=== PATIENT | male | born 1980 | race Caucasian/White ===

== ENCOUNTER → 2016-08-08 | Outpatient (CLI) | payer OTHER ==
--- NOTE | 2016-08-08 15:02 | FL ---
Wrist arthrogram HISTORY: Pain Maximal barrier technique was utilized. The skin overlying a suitable path to the scapholunate joint was localized with fluoroscopy and the overlying skin prepped and draped. Lidocaine used for local an esthesia. I was asked to evaluate for puncture following initial attempts. 21-gauge needle was advanced into the scapholunate joint under fluoroscopy. Serous fluid returned in the hub of the needle. Gentle hand injection was performed of approximately 3 to 4 cc of radiographic contrast mixed with gadolinium. Spot images were obtained. Needle removed. Hemostasis achieved. No i mmediate complication. FINDINGS: Contrast seen within the wrist joint. No evident triangle fibrocartilage tear. IMPRESSION: Status post fluoroscopic-guided arthrography. Post procedure MRI is pending.
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
== END | disposition home or self-care (01) ==
LOC: RADFLMAIN 12:48
PROVIDERS: ATTEND Plastic Surgery
DX: S63.501A Unspecified sprain of right wrist, initial encounter (principal)
CPT/HCPCS: 25246; 73115; 73222; Q9966; A9577

== ENCOUNTER → 2019-07-15 | Outpatient (CLI) | payer OTHER ==
--- NOTE | 2019-07-15 13:27 | XR ---
Left knee HISTORY: Pain 3 views of the left knee Bone mineralization, joint spaces and alignment are maintained. No evident joint effusion. IMPRESSION: No fracture or dislocation. Knee MRI may be of benefit.
== END | disposition home or self-care (01) ==
LOC: RADXRMAIN 11:16
PROVIDERS: ATTEND Family Medicine
DX: M25.562 Pain in left knee (principal)

== ENCOUNTER → 2020-05-02 | Outpatient (CLI) | payer OTHER ==
[2020-05-02 10:01] LABS: Basophils # (A) 0.1 k/uL (0-0.2); Basophils % (A) 1 %; Eosinophils # (A) 0.4 k/uL (0-0.7); Eosinophils % (A) 7 %; HCT 49.8 % (39.0-53.0); HGB 16.6 gm/dL (13.0-17.5); Lymphocytes # (A) 1.2 k/uL (1.0-4.8); Lymphocytes % (A) 25 %; MCH 30.5 pg (25.0-35.0); MCHC 33.3 g/dL (31.0-37.0); MCV 91.6 fL (80.0-100.0); Mean Platelet Volume 6.8; Monocytes # (A) 0.3 k/uL (0-1.0); Monocytes % (A) 6 %; Neutrophils # (A) 2.9 k/uL (1.3-7.7); Neutrophils % (A) 59 %; Platelet Count 211 k/uL (150-450); RBC 5.44 m/uL (4.30-5.90); RDW 13.1 % (11.5-15.5)
[2020-05-02 15:41] LABS: African American GFR (CKD) 110.9 (60.0-200.0); Anion Gap 9.1 mmol/L (4.00-12.00); Calcium 9.4 mg/dL (8.7-10.3); Carbon Dioxide 27.9 mmol/L (21.6-31.8); Non-African American GFR(CKD) 95.7 (60.0-200.0); Potassium 4.2 mmol/L (3.5-5.5)
[2020-05-03 13:22] LABS: T4/T8 Ratio (CD4:CD8) 0.6 (1.0-3.7)
[2020-05-03 15:24] LABS: HIV-1 RNA DETECTED (Not detected); HIV-1 RNA, Quant <40 Copies/mL (<40)
== END | disposition home or self-care (01) ==
LOC: LABWHC1 09:17
PROVIDERS: ATTEND Internal Medicine Infectious Disease
DX: B20 Human immunodeficiency virus [HIV] disease (principal)
CPT/HCPCS: 36415; 80048; 85025; 86360; 87536

== ENCOUNTER 2020-06-15 21:28 | Emergency (ER) | payer OTHER ==
[2020-06-15] MEDS ORDERED: PANTOPRAZOLE 40 MG/10 ML VIAL IVP STA (21:37)
[2020-06-15] MEDS ORDERED: DICYCLOMINE 10 MG/ML 2 ML AMP IM STA (21:37)
[2020-06-15] MEDS ORDERED: SODIUM CHLORIDE 0.9% 1,000 ML IV STA (21:37)
[2020-06-15] MEDS ORDERED: ONDANSETRON 4 MG/2 ML VIAL IVP STA (21:37)
--- NOTE | 2020-06-15 21:38 | ED ---
Abdominal Pain HPI - General Chief Complaint: Abdominal Pain Stated Complaint: Abd Pain,NVD Time Seen by Provider: 06/15/20 21:36 Source: patient Mode of arrival: ambulatory Limitations: no limitations - History of Present Illness Initial Comments: 39-year-old male presents to emergency department with a complaint of abdominal pain nausea vomiting. Patient reports the symptoms began earlier today when he had some nausea and one episode of nonbilious and nonbloody vomiting. Patient also reports 1 day worth of diarrhea. Patient reports dysuria and increased urgency for the past several months, intermittent . He reports developing abdominal pain in the right groin earlier today. States this was sudden onset pain is sharp in nature. Denies any penile discharge, testicular swelling or erythema. Does report some suprapubic tenderness but denies any flank or back pain. Does have abdominal surgical history of appendectomy. Denies taking med ication to alleviate the symptoms. Denies chest pain shortness of breath. - Related Data Home Medications Medication Instructions Recorded Confirmed Albuterol Sulfate [Ventolin HFA] 2 puff INHALATION RT-TID PRN 06/15/20 06/15/20 Azelastine HCl 2 spray EA NOSTRIL BID PRN 06/15/20 06/15/20 Cetirizine HCl [Zyrtec] 10 mg PO DAILY PRN 06/15/20 06/15/20 Efavirenz/Emtricitab/Tenofovir 1 tab PO HS 06/15/20 06/15/20 [Atripla Tablet] Hydrocortisone Cream 1 applic TOPICAL BID PRN 06/15/20 06/15/20 [Hydrocortisone 2.5% Cream] Montelukast [Singulair] 10 mg PO HS 06/15/20 06/15/20 Previous Rx's Medication Instructions Recorded HYDROcodone/APAP 7.5-325MG [[place] 1 tab PO Q6HR PRN 3 Days #12 tab 06/15/20 7.5-325] Ondansetron Odt [Zofran Odt] 4 mg PO Q8HR PRN #10 tab 06/15/20 Tamsulosin [Flomax] 0.4 mg PO DAILY #7 cap 06/15/20 Allergies Allergy/AdvReac Type Severity Reaction Status Date / Time No Known Allergies Allergy Verified 06/15/20 22:13 Review of Systems ROS Statement: Those systems with pertinent positive or pertinent negative responses have been documented in the HPI. ROS Other: All systems not noted in ROS Statement are negative. Past Medical History Additional Past Medical History / Comment(s): HIV+ ,PVC'S History of Any Multi-Drug Resistant Organisms: None Reported Past Surgical History: Ablation, Appendectomy, Orthopedic Surgery Additional Past Surgical History / Comment(s): rt wrist Past Psychological History: Anxiety, Depression Smoking Status: Never smoker Past Alcohol Use History: Occasional Past Drug Use History: None Reported General Exam Limitations: no limitations General appearance: alert, in no apparent distress Head exam: Present: atraumatic, normocephalic, normal inspection Eye exam: Present: normal appearance, PERRL, EOMI Pupils: Present: normal accommodation ENT exam: Present: normal exam, normal oropharynx, mucous membranes moist, TM's normal bilaterally, normal external ear exam Neck exam: Present: normal inspection, full ROM. Absent: tenderness Respiratory exam: Present: normal lung sounds bilaterally. Absent: respiratory distress Cardiovascular Exam: Present: regular rate, normal rhythm, normal heart sounds GI/Abdominal exam: Present: soft, tenderness (Mild suprapubic tenderness). Absent: distended Extremities exam: Present: normal inspection, full ROM Back exam: Present: normal inspection, full ROM. Absent: tenderness, CVA tenderness (R), CVA tenderness (L) Neurological exam: Present: alert, oriented X3 Psychiatric exam: Present: normal affect, normal mood Skin exam: Present: warm, dry, intact, normal color Course Vital Signs 06/15/20 21:32 Temperature 97.9 F Pulse Rate 122 H Respiratory 20 Rate Blood Pressure 163/100 O2 Sat by Pulse 99 Oximetry Medical Decision Making - Medical Decision Making 39-year-old male presents to the emergency room with a chief complaint abdominal pain nausea vomiting. Physical examination, he has some tenderness over the right groin region. Mild right CVA tenderness. Patient was given IV fluids, analgesia, antiemetics. CBC CMP unremarkable. UA shows large amounts of blood and red blood cells. CT of abdomen and pelvis without contrast reveals an obstructing calculus in the right distal ureter with moderate right-sided hydronephrosis and hydroureter. Renal stone measures about 8 mm. UA not suggestive of septic stone. Patient will be discharged with [place] for analgesia. Narcotic form signed. We'll also be discharged with Flomax and Zofran. Advised follow-up with urology. Return parameters thoroughly discussed with patient was up standing agreeable. Case discussed with physician. - Lab Data Result diagrams: 06/15/20 21:53 06/15/20 21:53 Lab Results 06/15/20 06/15/20 06/15/20 Range/Units 21:53 21:53 21:53 WBC 5.5 (3.8-10.6) k/uL RBC 5.29 (4.30-5.90) m/uL Hgb 16.2 (13.0-17.5) gm/dL Hct 46.6 (39.0-53.0) % MCV 88.2 (80.0-100.0) fL MCH 30.7 (25.0-35.0) pg MCHC 34.8 (31.0-37.0) g/dL RDW 13.1 (11.5-15.5) % Plt Count 259 (150-450) k/uL MPV 6.8 Neutrophils % 59 % Lymphocytes % 25 % Monocytes % 5 % Eosinophils % 6 % Basophils % 2 % Neutrophils # 3.2 (1.3-7.7) k/uL Lymphocytes # 1.4 (1.0-4.8) k/uL Monocytes # 0.3 (0-1.0) k/uL Eosinophils # 0.3 (0-0.7) k/uL Basophils # 0.1 (0-0.2) k/uL Sodium 142 (137-145) mmol/L Potassium 4.1 (3.5-5.1) mmol/L Chloride 105 (98-107) mmol/L Carbon Dioxide 23 (22-30) mmol/L Anion Gap 14 mmol/L BUN 20 (9-20) mg/dL Creatinine 0.90 (0.66-1.25) mg/dL Est GFR (CKD-EPI)AfAm >90 (>60 ml/min/1.73 sqM) Est GFR (CKD-EPI)NonAf >90 (>60 ml/min/1.73 sqM) Glucose 95 (74-99) mg/dL Calcium 9.4 (8.4-10.2) mg/dL Total Bilirubin 0.3 (0.2-1.3) mg/dL AST 31 (17-59) U/L ALT 40 (4-49) U/L Alkaline Phosphatase 62 (38-126) U/L Total Protein 7.5 (6.3-8.2) g/dL Albumin 4.8 (3.5-5.0) g/dL Lipase 93 (23-300) U/L Urine Color Yellow Urine Appearance Clear (Clear) Urine pH 5.5 (5.0-8.0) Ur Specific [place] 1.020 (1.001-1.035) Urine Protein Trace H (Negative) Urine Glucose (UA) Negative (Negative) Urine Ketones Trace H (Negative) Urine Blood Large H (Negative) Urine Nitrite Negative (Negative) Urine Bilirubin Negative (Negative) Urine Urobilinogen <2.0 (<2.0) mg/dL Ur Leukocyte Esterase Negative (Negative) Urine RBC >182 H (0-5) /hpf Urine WBC 5 (0-5) /hpf Urine Mucus Rare H (None) /hpf Disposition Clinical Impression: Nephrolithiasis, Hydronephrosis Disposition: HOME SELF-CARE Condition: Stable Instructions (If sedation given, give patient instructions): Kidney Stones (ED) Additional Instructions: Take prescribed medication as directed. Drink plenty of fluids. Follow-up with urology.Please return to the Emergency Department if symptoms worsen or any other concerns. Prescriptions: Tamsulosin [Flomax] 0.4 mg PO DAILY #7 cap HYDROcodone/APAP 7.5-325MG [[place] 7.5-325] 1 tab PO Q6HR PRN 3 Days #12 tab PRN Reason: Pain Ondansetron Odt [Zofran Odt] 4 mg PO Q8HR PRN #10 tab PRN Reason: Nausea Is patient prescribed a controlled substance at d/c from ED?: Yes If prescribed controlled substance>3 days was MAPS reviewed?: Prescribed <3 Days Referrals: Rey Sharma MD [Primary Care Provider] - 1-2 days Time of Disposition: 23:19
[2020-06-15 22:03] LABS: Basophils # (A) 0.1 k/uL (0-0.2); Basophils % (A) 2 %; Eosinophils # (A) 0.3 k/uL (0-0.7); Eosinophils % (A) 6 %; HCT 46.6 % (39.0-53.0); HGB 16.2 gm/dL (13.0-17.5); Lymphocytes # (A) 1.4 k/uL (1.0-4.8); Lymphocytes % (A) 25 %; MCH 30.7 pg (25.0-35.0); MCHC 34.8 g/dL (31.0-37.0); MCV 88.2 fL (80.0-100.0); Mean Platelet Volume 6.8; Monocytes # (A) 0.3 k/uL (0-1.0); Monocytes % (A) 5 %; Neutrophils # (A) 3.2 k/uL (1.3-7.7); Neutrophils % (A) 59 %; Platelet Count 259 k/uL (150-450); RBC 5.29 m/uL (4.30-5.90); RDW 13.1 % (11.5-15.5); WBC 5.5 k/uL (3.8-10.6)
[2020-06-15 22:06] LABS: Appearance,Urine Clear (Clear); Bilirubin,Urine Negative (Negative); Blood,Urine Large (Negative); Color,Urine Yellow; Glucose,Urine (UA) Negative (Negative); Ketones,Urine Trace (Negative); Leukocyte Esterase,Urine Negative (Negative); Mucus,Urine Rare /hpf; Nitrite,Urine Negative (Negative); PH, Urine 5.5 (5.0-8.0); Protein,Urine Trace (Negative); RBC,Urine >182 /hpf (0-5); Urobilinogen,Urine <2.0 mg/dL (<2.0); WBC,Urine 5 /hpf (0-5)
[2020-06-15] MEDS ORDERED: KETOROLAC 15 MG/ML 1 ML VIAL IVP STA (22:11)
[2020-06-15 22:16] LABS: ALT 40 U/L (4-49); AST 31 U/L (17-59); African American GFR (CKD) >90 (>60 ml/min/1.73 sqM); Albumin 4.8 g/dL (3.5-5.0); Alkaline Phosphatase 62 U/L (38-126); Anion Gap 14 mmol/L; Blood Urea Nitrogen 20 mg/dL (9-20); Calcium 9.4 mg/dL (8.4-10.2); Carbon Dioxide 23 mmol/L (22-30); Chloride 105 mmol/L (98-107); Glucose 95 mg/dL (74-99); Lipase 93 U/L (23-300); Non-African American GFR(CKD) >90 (>60 ml/min/1.73 sqM); Potassium 4.1 mmol/L (3.5-5.1); Sodium 142 mmol/L (137-145); Total Bilirubin 0.3 mg/dL (0.2-1.3); Total Protein 7.5 g/dL (6.3-8.2)
--- NOTE | 2020-06-15 23:12 | CT ---
EXAMINATION TYPE: CT abdomen pelvis wo con DATE OF EXAM: 06/15/2020 COMPARISON: None HISTORY: abdomen pain, r/o renal stone CT DLP: 527.4 mGycm Automated exposure control for dose reduction was used. Images obtained from the diaphragm to the floor the pelvis with no contrast. The lung bases are clear. There is no pleural effusion. Heart size is normal. There is no pericardial effusion. Liver spleen pancreas gallbladder appear intact. Bile ducts are not dilated. There is no adrenal mass. Kidneys have normal size. There is right-sided hydronephrosis and hydrouret er. There is 8mm calculus in the distal right ureter. There are multiple bilateral renal calculi that measure up to 1 cm. There is no evidence of a renal mass. There is no evidence of obstruction on the left side. There is no retroperitoneal adenopathy. The bladder distends smoothly. There is no inguinal hernia. There is no free fluid in the pelvis. There is no mesenteric edema. There is no ascites or free air. There are surgical clips in the right lower quadrant probably from appendectomy. Appendix is not seen. Terminal ileum appears normal. The s tomach is intact. The lumbar vertebra have normal alignment. There is no compression fracture. Posterior elements are i ntact. The bony pelvis is intact. Hip joints appear normal. IMPRESSION: Obstructing calculus distal right ureter with moderate right-sided hydronephrosis and hydroureter. Multiple large bilateral renal calculi.
[2020-06-15] MEDS ORDERED: HYDROcodone/APAP 5-325MG 1 EACH TAB PO STA (23:16)
[2020-06-15] MEDS ORDERED: TAMSULOSIN 0.4 MG CAP.ER.24H PO STA (23:16)
[2020-06-15] MEDS ORDERED: ONDANSETRON 4 MG ODT STARTER PACK 2 TAB BTL PO STA (23:16)
[2020-06-15 23:39] VITALS: BP 123/86; PULSE 89; RESP 18; TEMP 98.1
== END 2020-06-15 23:39 | disposition home or self-care (01) ==
LOC: EC 21:28
DX: N13.2 Hydronephrosis with renal and ureteral calculous obstruction (principal); R19.7 Diarrhea, unspecified; Z90.49 Acquired absence of other specified parts of digestive tract
CPT/HCPCS: 99284; 96372; 96374; 96375 ×3; 96361; 36415; 80053; 83690; 85025; 81001; 74176; J0500; J2405; J1885; S0119; C9113

== ENCOUNTER 2020-06-27 08:25 | Day surgery (SDC) | payer OTHER ==
[2020-06-25 11:35] VITALS: BMI 25.8
--- NOTE | 2020-06-26 19:18 | P.GSHP ---
History of Present Illness H&P Date: 06/26/20 39 yo male who for the last month has been trying to pass a large right ureteral stone. It is 8 mm in the distal ureter right. He comes for right ureteroscopy and laser lithotripsy The risks comlications and alternatives have been discussed He comes for this procedure - Constitutional Constitutional: Denies chills, Denies fever - EENT Eyes: denies blurred vision, denies pain Ears, nose, mouth and throat: Denies headache, Denies sore throat - Cardiovascular Cardiovascular: Denies chest pain, Denies shortness of breath - Respiratory Respiratory: Denies cough, Denies 7 - Gastrointestinal Gastrointestinal: Denies abdominal pain, Denies diarrhea, Denies nausea, Denies vomiting - Genitourinary (Female) Genitourinary: Denies dysuria, Denies hematuria - Genitourinary (Male) Genitourinary: Denies dysuria, Denies hematuria - Musculoskeletal Musculoskeletal: Denies myalgias - Integumentary Integumentary: Denies pruritus, Denies rash - Neurological Neurological: Denies numbness, Denies weakness - Psychiatric Psychiatric: Denies anxiety, Denies depression - Endocrine Endocrine: Denies fatigue, Denies weight change Past Medical History Past Medical History: Asthma, Sleep Apnea/CPAP/BIPAP Additional Past Medical History / Comment(s): HIV+ ,PVC'S, , KIDNEY STONES, History of Any Multi-Drug Resistant Organisms: None Reported Past Surgical History: Ablation, Appendectomy, Orthopedic Surgery, Tonsillectomy Additional Past Surgical History / Comment(s): rt wrist, CARDIAC ABLATION, SALIVA GLAND SURGERY Past Anesthesia/Blood Transfusion Reactions: No Reported Reaction Smoking Status: Former smoker - Past Family History Mother Family Medical History: No Reported History Medications and Allergies Home Medications Medication Instructions Recorded Confirmed Type Albuterol Sulfate [Ventolin HFA] 2 puff INHALATION RT-TID PRN 06/15/20 06/25/20 History Azelastine HCl 2 spray EA NOSTRIL BID PRN 06/15/20 06/25/20 History Cetirizine HCl [Zyrtec] 10 mg PO DAILY PRN 06/15/20 06/25/20 History Efavirenz/Emtricitab/Tenofovir 1 tab PO HS 06/15/20 06/25/20 History [Atripla Tablet] HYDROcodone/APAP 7.5-325MG [[place] 1 tab PO Q6HR PRN 3 Days #12 tab 06/15/20 06/25/20 Rx 7.5-325] Hydrocortisone Cream 1 applic TOPICAL BID PRN 06/15/20 06/25/20 History [Hydrocortisone 2.5% Cream] Montelukast [Singulair] 10 mg PO HS 06/15/20 06/25/20 History Ondansetron Odt [Zofran Odt] 4 mg PO Q8HR PRN #10 tab 06/15/20 06/25/20 Rx Allergies Allergy/AdvReac Type Severity Reaction Status Date / Time No Known Allergies Allergy Verified 06/15/20 22:13 Surgical - Exam - General well developed, well nourished, no distress - Eyes PERRL - ENT no hearing loss - Neck no masses - Respiratory normal expansion, normal respiratory effort - Cardiovascular Rhythm: regular - Abdomen Abdomen: soft, non tender, no guarding, no rigid, no rebound - Genitourinary normal penis with no external lesions, testicles present - Rectum Rectum: no tenderness - Integumentary no rash, no growths - Neurologic normal coordination, normal sensation - Musculoskeletal normal gait, normal posture - Psychiatric oriented to time, oriented to person, oriented to place, speech is normal, memory intact Results - Imaging Abdominal x-ray: report reviewed, image reviewed CT scan - abdomen: report reviewed, image reviewed CT scan - pelvis: report reviewed, image reviewed Assessment and Plan Assessment: Impression: Right ureteral stone Plan: right ureterosopy with laser lithotripsy
[~2020-06-27 08:25] MED LIST: DEXAMETHASONE SOD PHOSPHATE 4 MG/ML 1 ML VIAL IV ONE; HYDROmorphone 0.5 MG/0.5 ML SYRINGE IVP PRN; LIDOCAINE 1% (10MG/ML) FOR IV START INTRADERMA PRN; MIDAZOLAM 2 MG/2 ML VIAL IV PRN
--- NOTE | 2020-06-27 08:58 | XR ---
EXAMINATION TYPE: XR KUB DATE OF EXAM: 06/27/2020 COMPARISON: 06/15/2020 HISTORY: Preop kidney stones TECHNIQUE: One view abdominal series FINDINGS: The osseous structures are intact. The bowel gas pattern is nonspecific. Right kidney: There are approximately 5 calcifications noted on the right the largest measuring 7 mm in the lower pole. Left kidney: There is a branched calcification likely within the lower pole calyx of the left kidney measuring 8 mm. No additional definitive calcifications are seen. Note is made of overlying bowel con tent obscures the bilateral renal outlines. Bowel gas pattern nonspecific with extensive retained fecal debris. Surgical clips overlying the righ t iliac bone. Pelvis: There is a oblong-shaped calcification in the right hemipelvis measuring a length of 4 mm in diameter of [address] mm [address] corresponds to CT calcification at the right UVJ. IMPRESSION: 1. Stable right UVJ calculus as measured above. 2. Bilateral nephrolithiasis.
[2020-06-27] MEDS ORDERED: ONDANSETRON 4 MG/2 ML VIAL ONE (09:23)
[2020-06-27] MEDS: LACTATED RINGERS 1,000 ML IV SCH ×2 (09:36→10:42)
[2020-06-27] MEDS ORDERED: PROPOFOL 10 MG/ML 20 ML VIAL IV ONE (10:12)
[2020-06-27] MEDS ORDERED: SUCCINYLCHOLINE CHLORIDE 100 MG/5 ML SYR IV ONE (10:12)
[2020-06-27] MEDS ORDERED: fentaNYL (PF) 50 MCG/ML 2 ML AMP ONE (10:12)
[2020-06-27] MEDS ORDERED: LIDOCAINE 1% INJ 10MG/ML (20 ML MDV) ONE (10:12)
[2020-06-27] MEDS ORDERED: MIDAZOLAM 2 MG/2 ML VIAL ONE (10:12)
--- NOTE | 2020-06-27 11:28 | P.OP ---
Date of Procedure: 06/27/20 Preoperative Diagnosis: Right ureteral calculus Postoperative Diagnosis: Same Procedure(s) Performed: Right ureteroscopy with laser lithotripsy Anesthesia: DANIELLE Surgeon: Vish Anaya Estimated Blood Loss (ml): 0 Pathology: none sent Condition: stable Disposition: PACU Indications for Procedure: The patient is 39. For the last several days probably the last month he has been trying to pass a ureteral stone on the right. It is a 3 x 6 mm in the distal ureter. He comes for right ureteroscopy laser lithotripsy Description of Procedure: The patient is brought to the operating suite. He is given a general endotracheal anesthesia. He's placed in lithotomy position with a sterile prep and drape. Cystoscopy with a Foroblique lens and 21-[place]iberian sheath identifies a normal anterior urethra. Prostate is not obstructing. The bladder mucosa is unremarkable. The right ureteral orifice is identified and intubated with a 7- [place] semirigid ureteroscope. The stone was seen in the distal ureter. There is marked proximal hydroureteronephrosis. With the 270 laser probe the stone was broken and find fragments and flushed out of the ureter. Then of the procedure there is no remaining stones in the right ureter. The ureter is not edematous enough to leave a stent. The bladder strain the patient's awake and returned recovery in good condition. He tolerated the procedure well. He'll be discharged home upon recovery. Following the office in one week.
--- NOTE | 2020-06-27 11:28 | FL ---
EXAMINATION TYPE: FL guidance operating room DATE OF EXAM: 06/27/2020 HISTORY: Fluoroscopy time 3 seconds of fluoroscopy provided. IMPRESSION: 1. Fluoroscopy time.
[2020-06-27 11:35] VITALS: TEMP 97.2
[2020-06-27] MEDS ORDERED: HYDROcodone/APAP 5-325MG 1 EACH TAB ONE (12:35)
[2020-06-27] MEDS ORDERED: HYDROcodone/APAP 5-325MG 1 EACH TAB PO ONE (12:39)
[2020-06-27 13:31] VITALS: RESP 20
[2020-06-27 13:33] VITALS: BP 119/61; PULSE 70
== END 2020-06-27 14:15 | disposition home or self-care (01) ==
LOC: OR 08:25
PROVIDERS: ATTEND Urology
DX: N13.2 Hydronephrosis with renal and ureteral calculous obstruction (principal); B20 Human immunodeficiency virus [HIV] disease; G47.33 Obstructive sleep apnea (adult) (pediatric); Z87.442 Personal history of urinary calculi; Z79.899 Other long term (current) drug therapy; J45.909 Unspecified asthma, uncomplicated; Z98.890 Other specified postprocedural states; Z87.891 Personal history of nicotine dependence
CPT/HCPCS: 74018; 52353; J2250; J1100; J2405; J0690; J2001; J3010; J0330; J2704

== ENCOUNTER → 2020-07-23 | Outpatient (CLI) | payer OTHER ==
[2020-07-23 12:29] LABS: Basophils % (A) 1 %; Eosinophils # (A) 0.1 k/uL (0-0.7); Eosinophils % (A) 1 %; HCT 45.3 % (39.0-53.0); HGB 15.7 gm/dL (13.0-17.5); Lymphocytes # (A) 0.8 k/uL (1.0-4.8); Lymphocytes % (A) 24 %; MCH 31.3 pg (25.0-35.0); MCHC 34.6 g/dL (31.0-37.0); MCV 90.2 fL (80.0-100.0); Mean Platelet Volume 7.3; Monocytes # (A) 0.3 k/uL (0-1.0); Monocytes % (A) 9 %; Neutrophils # (A) 2.1 k/uL (1.3-7.7); Neutrophils % (A) 62 %; Platelet Count 172 k/uL (150-450); RBC 5.02 m/uL (4.30-5.90); WBC 3.4 k/uL (3.8-10.6)
[2020-07-23 12:47] LABS: African American GFR (CKD) >90 (>60 ml/min/1.73 sqM); Anion Gap 7 mmol/L; Blood Urea Nitrogen 11 mg/dL (9-20); Carbon Dioxide 24 mmol/L (22-30); Chloride 104 mmol/L (98-107); Non-African American GFR(CKD) >90 (>60 ml/min/1.73 sqM); Potassium 3.7 mmol/L (3.5-5.1); Sodium 135 mmol/L (137-145)
[2020-07-23 13:00] LABS: Appearance,Urine Clear (Clear); Bilirubin,Urine Negative (Negative); Blood,Urine Moderate (Negative); Color,Urine Yellow; Glucose,Urine (UA) Negative (Negative); Ketones,Urine 2+ (Negative); Leukocyte Esterase,Urine Negative (Negative); Nitrite,Urine Negative (Negative); Protein,Urine Negative (Negative); RBC,Urine 101 /hpf (0-5); Specific Gravity,Urine 1.015 (1.001-1.035); Urobilinogen,Urine <2.0 mg/dL (<2.0); WBC,Urine 1 /hpf (0-5)
== END | disposition home or self-care (01) ==
LOC: LABPAT 11:12
PROVIDERS: ATTEND Urology
DX: Z01.818 Encounter for other preprocedural examination (principal); N20.0 Calculus of kidney; R31.29 Other microscopic hematuria
CPT/HCPCS: 80051; 81001; 82565; 84520; 85025

== ENCOUNTER 2020-07-30 06:04 | Day surgery (SDC) | payer OTHER ==
[2020-07-25 15:43] VITALS: BMI 25.8
--- NOTE | 2020-07-28 11:13 | P.GSHP ---
History of Present Illness H&P Date: 07/28/20 39 yo male stone disease He has an 8 mm left renal stone that causes pain.. He comes for eswl left - Constitutional Constitutional: Denies chills, Denies fever - EENT Eyes: denies blurred vision, denies pain Ears, nose, mouth and throat: Denies headache, Denies sore throat - Cardiovascular Cardiovascular: Denies chest pain, Denies shortness of breath - Respiratory Respiratory: Denies cough, Denies 7 - Gastrointestinal Gastrointestinal: Denies abdominal pain, Denies diarrhea, Denies nausea, Denies vomiting - Genitourinary (Female) Genitourinary: Denies dysuria, Denies hematuria - Genitourinary (Male) Genitourinary: Denies dysuria, Denies hematuria - Musculoskeletal Musculoskeletal: Denies myalgias - Integumentary Integumentary: Denies pruritus, Denies rash - Neurological Neurological: Denies numbness, Denies weakness - Psychiatric Psychiatric: Denies anxiety, Denies depression - Endocrine Endocrine: Denies fatigue, Denies weight change Past Medical History Past Medical History: Asthma, Sleep Apnea/CPAP/BIPAP Additional Past Medical History / Comment(s): HIV+ ,PVC'S, , KIDNEY STONES, no cpap History of Any Multi-Drug Resistant Organisms: None Reported Past Surgical History: Appendectomy, Cardiac Ablation, Orthopedic Surgery, Tonsillectomy Additional Past Surgical History / Comment(s): rt wrist, SALIVA GLAND SURGERY,lithotripsy 06-27-20 Past Anesthesia/Blood Transfusion Reactions: No Reported Reaction Additional Past Anesthesia/Blood Transfusion Reaction / Comment(s): no hx blood transfusion Smoking Status: Former smoker - Past Family History Mother Family Medical History: No Reported History Medications and Allergies Home Medications Medication Instructions Recorded Confirmed Type Albuterol Sulfate [Ventolin HFA] 2 puff INHALATION RT-TID PRN 06/15/20 07/25/20 History Azelastine HCl 2 spray EA NOSTRIL BID PRN 06/15/20 07/25/20 History Cetirizine HCl [Zyrtec] 10 mg PO DAILY PRN 06/15/20 07/25/20 History Efavirenz/Emtricitab/Tenofovir 1 tab PO HS 06/15/20 07/25/20 History [Atripla Tablet] Hydrocortisone Cream 1 applic TOPICAL BID PRN 06/15/20 07/25/20 History [Hydrocortisone 2.5% Cream] Montelukast [Singulair] 10 mg PO HS 06/15/20 07/25/20 History Ondansetron Odt [Zofran Odt] 4 mg PO Q8HR PRN #10 tab 06/15/20 07/25/20 Rx Allergies Allergy/AdvReac Type Severity Reaction Status Date / Time No Known Allergies Allergy Verified 07/25/20 15:38 Surgical - Exam - General well developed, well nourished - Eyes PERRL - ENT no hearing loss - Neck trachea midline - Respiratory normal expansion, normal respiratory effort - Cardiovascular Rhythm: regular - Abdomen Abdomen: soft, non tender - Integumentary no rash, no growths - Musculoskeletal normal gait - Psychiatric oriented to time, oriented to person, oriented to place, speech is normal, memory intact Assessment and Plan Assessment: Impression: Left renal stone Plan ESWL left
[~2020-07-30 06:04] MED LIST changes: -DEXAMETHASONE SOD PHOSPHATE 4 MG/ML 1 ML VIAL IV ONE; -HYDROmorphone 0.5 MG/0.5 ML SYRINGE IVP PRN; +LACTATED RINGERS 1,000 ML IV SCH; -LIDOCAINE 1% (10MG/ML) FOR IV START INTRADERMA PRN; -MIDAZOLAM 2 MG/2 ML VIAL IV PRN
--- NOTE | 2020-07-30 06:22 | XR ---
EXAMINATION TYPE: XR KUB DATE OF EXAM: 07/30/2020 6:15 AM CLINICAL HISTORY: Kidney stones, pre lithotripsy. TECHNIQUE: Single supine KUB image of the abdomen is obtained. COMPARISON: Abdominal series xray June 27, 2020. FINDINGS: There is stable 8 mm right renal calculus at superior L3 level proximal study. There are sm aller adjacent punctate calculi redemonstrated. There is stable 8mm left-sided calculus at inferior L 2 level. Overall nonobstructive bowel gas pattern. Surgical clips overlying right upper sacrum redemonstrated. Osseous structures are intact. IMPRESSION: Stable bilateral nephrolithiasis.
[2020-07-30 06:32] VITALS: RESP 16; TEMP 97.8
[2020-07-30] MEDS ORDERED: ONDANSETRON 4 MG/2 ML VIAL ONE (06:40)
[2020-07-30] MEDS ORDERED: fentaNYL (PF) 50 MCG/ML 2 ML AMP ONE (07:30)
[2020-07-30] MEDS ORDERED: PROPOFOL 10 MG/ML 20 ML VIAL IV ONE (07:30)
[2020-07-30] MEDS ORDERED: MIDAZOLAM 2 MG/2 ML VIAL ONE (07:30)
[2020-07-30] MEDS ORDERED: KETAMINE 10 MG/ML 20 ML VIAL ONE (07:30)
[2020-07-30] MEDS ORDERED: LIDOCAINE 1% INJ 10MG/ML (20 ML MDV) ONE (07:30)
--- NOTE | 2020-07-30 08:17 | P.OP ---
Date of Procedure: 07/30/20 Preoperative Diagnosis: Left renal calculus Postoperative Diagnosis: Same Procedure(s) Performed: Left extracorporal shockwave lithotripsy (ESWL) Anesthesia: MAC Surgeon: Guero Vanegas Estimated Blood Loss (ml): 0 IV fluids (ml): 900 Pathology: none sent Condition: stable Disposition: PACU Indications for Procedure: The patient is a 39-year-old white male with a history of urolithiasis. He has a symptomatic 8 mm left renal calculus and comes for ESWL. Operative Findings: The calculus appears to fragment. Description of Procedure: The patient was taken to the operating room and placed on the Dornier Compact Delta II lithotripter in the supine position. The calculus was seen on biplanar fluoroscopy. Once the patient was properly positioned and sedated, lithotripsy was performed. The energy level was gradually increased per protocol, to an energy level of 5, though the majority of the procedure was performed at an energy level of 4. After 200 shocks were administered, a 2 minute pause was instituted per protocol. A total of 2500 shocks were given at a rate of 80 shocks per minute. Fluoroscopy was utilized at a minimum to ensure proper positioning and determine the treatment status. The appearance of the calculus appeared to change, suggesting fragmentation had occurred. The patient tolerated the procedure well was taken to the recovery room in stable condition. Instructions were given to strain the urine, and the patient will follow-up within one week.
[2020-07-30 09:44] VITALS: BP 111/67; PULSE 75
== END 2020-07-30 09:44 | disposition home or self-care (01) ==
LOC: ORWHC2ENDO 06:04
PROVIDERS: ATTEND Urology
DX: N20.0 Calculus of kidney (principal); J45.909 Unspecified asthma, uncomplicated; G47.33 Obstructive sleep apnea (adult) (pediatric); Z99.89 Dependence on other enabling machines and devices; Z87.442 Personal history of urinary calculi; B20 Human immunodeficiency virus [HIV] disease; I49.3 Ventricular premature depolarization; Z90.89 Acquired absence of other organs; Z98.890 Other specified postprocedural states; Z87.891 Personal history of nicotine dependence; Z79.899 Other long term (current) drug therapy
CPT/HCPCS: 74018; 50590; J2250; J2001; J3010; J2704